=== PATIENT | male | born 1995 | race Caucasian/White ===

== ENCOUNTER 2021-01-22 07:32 | Emergency (ER) | payer OTHER ==
[~2021-01-22] VITALS: Ht 180.3 cm; Wt 72.6 kg
[2021-01-22] MEDS ORDERED: ZESTRIL10 MG PO (07:53)
[2021-01-22] MEDS ORDERED: CELEXA 20 MG TA20 MG PO (07:53)
[2021-01-22] MEDS ORDERED: XANAX 0.5 MG0.5 M1 PO (07:54)
[2021-01-22] MEDS ORDERED: ASA81BEC PO (08:03)
[2021-01-22 08:33] LABS: ABSOLUTE EOSINOPHILS 0.1 thou/uL (0.0-0.7); ABSOLUTE LYMPHOCYTES 1.6 thou/uL (0.8-5.3); ABSOLUTE MONOCYTES 0.6 thou/uL (0.0-1.2); ABSOLUTE NEUTROPHILS 3.9 thou/uL (1.6-8.1); BASOPHILS 0.7 %; EOSINOPHILS 1.7 %; HEMATOCRIT 45.6 % (42.0-52.0); HEMOGLOBIN 15.3 gm/dL (14.0-18.0); LYMPHOCYTES 25.9 %; MCHC 33.5 g/dL (28.0-37.0); MCV 89.5 fL (80.0-100.0); MONOCYTES 9.1 %; MPV 7.7 fl. (7.2-11.1); NUCLEATED RBCS 0 /100WBC; PLATELET COUNT* 279 thou/uL (150-400); POLYS 62.6 %; RDW-CV 13.9 % (10.5-14.5); WBC 6.2 thou/uL (4.0-11.0)
[2021-01-22 08:38] LABS: CALCIUM 8.5 mg/dL (8.5-10.1); CREATININE 1.1 mg/dL (0.6-1.3); POTASSIUM 4.1 mmol/L (3.5-5.1)
[2021-01-22 08:42] LABS: ALBUMIN 3.4 g/dL (3.4-5.0); MAGNESIUM 1.9 mg/dL (1.8-2.4); TOTAL BILIRUBIN 0.3 mg/dL (<0.1-1.0); TOTAL PROTEIN 7.3 g/dL (6.4-8.2)
[2021-01-22] MEDS ORDERED: FLEXERIL PO (09:07)
[2021-01-22 09:17] VITALS: BP 126/68
--- NOTE | 2021-01-22 09:44 | EKG ---
[place] [address] ELECTROCARDIOGRAM REPORT Name: BOOKER MCKEON Room: [facility]#: [id number] Admission: 01/22/21 Attend Phys: Discharge: 01/22/21 Date of : [birth year] Date of Service: 01/22/21 0735 Report #: [id number] THIS REPORT FOR: //name// [facility] ED Test Date: 2021-01-22 Test Time: 07:35:03 Pat Name: BOOKER MCKEON Department: Room: Gender: Medical File Clerk: [facility] : 1995 Requested By: Christiano Salas Order Number: [id number] MD: Bj Rios Measurements Intervals [place] Rate: 79 P: 71 MN: 146 QRS: 113 QRSD: 90 T: 63 QT: 348 QTc: 399 Interpretive Statements Sinus rhythm Consider right ventricular hypertrophy ST elev, probable normal early repol pattern No previous ECG available for comparison Electronically Signed On 01-22-2021 9:44:37 [employer] OPERATIONS MANAGER by Bj Rios [email or web address] <ELECTRONICALLY SIGNED> By: Naomy Rios MD, [facility] 01/22/21 0944 0735 Naomy Rios MD, [facility] SYSTEM[facility] /EPI
== END 2021-01-22 09:17 | disposition home or self-care (01) ==
LOC: M.ERS 07:32
PROVIDERS: Emergency Medicine Emergency Medical Services
DX: R07.89 Other chest pain (principal); Z79.82 Long term (current) use of aspirin; Z79.899 Other long term (current) drug therapy